=== PATIENT | male | born 1945 ===

== ENCOUNTER 2023-08-09 14:41 | Outpatient (CLI) | payer OTHER, SELFPAY ==
[2023-08-09 10:33] LABS: Estimated GFR 77.04 (mL/min/1.73m2)
== END 2023-08-09 14:42 | disposition home or self-care (01) ==
LOC: LBO 14:42
PROVIDERS: Visit Provider Preventive Medicine Undersea and Hyperbaric Medicine
DX: C44.42 Squamous cell carcinoma of skin of scalp and neck (principal)
CPT/HCPCS: 36415; 82565